=== PATIENT | female | born 2000 | race Two or more races ===

== ENCOUNTER 2024-12-08 19:23 | Emergency (ER) | payer MEDICAID, SELFPAY ==
[2024-12-08 19:25] VITALS: BP 136/77; PULSE 96; PULSE 97; RESP 16; RESP 20; TEMP 36.8; O2SAT 98; O2SAT 99; BMI 37.8
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
[2024-12-08 20:05] VITALS: PULSE 88
[2024-12-08] MEDS: LORazepam 0.5 MG TABLET 1 MG PO (20:07)
[2024-12-08 20:40] VITALS: BP 148/113; PULSE 97; RESP 20; O2SAT 100
[2024-12-09 01:20] VITALS: BP 138/76; PULSE 78; RESP 18; TEMP 36.7; O2SAT 98
== END 2024-12-09 01:22 | disposition home or self-care (01) ==
PROVIDERS: Emergency Provider Emergency Medicine
DX: T62.0X1A Toxic effect of ingested mushrooms, accidental (unintentional), initial encounter (principal); R44.3 Hallucinations, unspecified; F17.200 Nicotine dependence, unspecified, uncomplicated; Y92.003 Bedroom of unspecified non-institutional (private) residence as the place of occurrence of the external cause
CPT/HCPCS: 80307; 99283; A9270

== ENCOUNTER 2025-02-08 00:24 | Emergency (ER) | payer MEDICAID, SELFPAY ==
[2025-02-08 00:24] VITALS: BMI 42.9
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
[2025-02-08 00:55] VITALS: BP 146/84; PULSE 89; RESP 20; TEMP 36.7; O2SAT 98
== END 2025-02-08 01:52 | disposition home or self-care (01) ==
LOC: SERX 03:57
PROVIDERS: Emergency Provider Emergency Medicine
DX: S90.31XA Contusion of right foot, initial encounter (principal); V00.848A Other accident with standing micro-mobility pedestrian conveyance, initial encounter
CPT/HCPCS: 73630; 99283